=== PATIENT | female | born 1965 | race Two or more races ===

== ENCOUNTER 2018-12-28 11:00 | Day surgery (SDC) | payer OTHER ==
[~2018-12-28] VITALS: Ht 170.2 cm; Wt 87.3 kg
[2018-12-28 12:11] VITALS: Ht 170.2 cm; Wt 87.3 kg
[2018-12-28] MEDS ORDERED: ZOC10 PO (12:19)
[2018-12-28] MEDS ORDERED: PROP10TA6 PO (12:19)
[2018-12-28] MEDS ORDERED: BENA20TA4 PO (12:19)
[2018-12-28 12:21] VITALS: BP 150/73; PULSE 79; RESP 20
[2018-12-28 14:15] VITALS: BP 133/78; PULSE 68; RESP 20
[2018-12-28] MEDS ORDERED: MIDAZOLAM 1 MG/ML 2 ML INJ ONE ×2 (14:17)
[2018-12-28] MEDS ORDERED: FENTAnyl 50 MCG/ML VIAL ONE (14:18)
[2018-12-28 14:30] VITALS: BP 145/80; PULSE 70; RESP 20
[2018-12-28 14:40] VITALS: BP 140/79; PULSE 70; RESP 20
== END 2018-12-28 15:20 | disposition home or self-care (01) ==
LOC: GIL 11:00
PROVIDERS: ATTEND Internal Medicine
DX: Z12.11 Encounter for screening for malignant neoplasm of colon (principal)
CPT/HCPCS: 45378; J2250; J3010